=== PATIENT | female | born 1975 | race Two or more races ===

== ENCOUNTER 2021-10-29 08:44 | Outpatient (CLI) | payer OTHER | END 2021-10-29 08:49 | disposition home or self-care (01) | LOC: PPH VACUNA 08:44 | PROVIDERS: ATTEND Emergency Medicine Pediatric Emergency Medicine | DX: Z23 Encounter for immunization (principal) ==

== ENCOUNTER 2022-12-13 09:14 | Day surgery (SDC) | payer OTHER | END 2022-12-13 15:15 | disposition home or self-care (01) | LOC: AMB-ENDOS 09:14 | PROVIDERS: ATTEND Internal Medicine Gastroenterology | DX: Z12.11 Encounter for screening for malignant neoplasm of colon (principal); Z20.822 Contact with and (suspected) exposure to COVID-19 ==